=== PATIENT | male | born 2000 | race Caucasian/White ===

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

== ENCOUNTER 2019-10-08 23:27 | Inpatient (IN) | payer MEDICAID, OTHER ==
[~2019-10-08] VITALS: Ht 182.9 cm; Wt 112.0 kg
[2019-10-08 23:52] LABS: BASOPHILS % (AUTO) 0.6 % (0.0-2.0); EOSINOPHILS % (AUTO) 1.7 % (1.0-6.0); HEMATOCRIT 45.8 % (41-53); LYMPHOCYTES # (AUTO) 1.7 K/uL (1.0-4.8); LYMPHOCYTES % (AUTO) 22.3 % (22.0-44.0); MEAN CORPUSCULAR HEMOGLOBIN 27.8 pg (26.0-34.0); MEAN CORPUSCULAR HGB CONC 32.9 G/dL (31.0-37.0); MEAN CORPUSCULAR VOLUME 85 fL (80-100); MONOCYTES # (AUTO) 0.6 K/uL (0.1-1.0); MONOCYTES % (AUTO) 7.7 % (2.0-9.0); NEUTROPHILS # (AUTO) 5.2 K/uL (1.8-7.7); NEUTROPHILS % (AUTO) 67.7 % (40.0-70.0); PLATELET COUNT (AUTO) 257 K/uL (150-450); RED BLOOD CELL COUNT(AUTO) 5.41 MIL/uL (4.50-5.90); RED CELL DISTRIBUTION WIDTH 13.2 % (11.5-14.5)
[2019-10-09 00:03] LABS: ANION GAP 9 mmol/L (8-16); CALCIUM, TOTAL 9.2 mg/dL (8.8-10.5); CARBON DIOXIDE 27 mmol/L (22-29); CHLORIDE 105 mmol/L (98-107); CREATININE 0.96 mg/dL (0.60-1.30); GLOMERULAR FILTR. RATE CALC > 60 mL/min (>60); GLUCOSE,RANDOM 95 mg/dL (70-110); POTASSIUM 3.9 mmol/L (3.5-5.1); SODIUM SERUM 141 mmol/L (136-145); UREA NITROGEN, BLOOD 7 mg/dL (7-18)
[2019-10-09 00:09] LABS: ALANINE AMINOTRANSFERASE 63 U/L (12-78); ALBUMIN 4.3 g/dL (3.4-5.0); ALKALINE PHOSPHATASE 87 U/L (46-116); ASPARTATE AMINOTRANSFERASE 18 U/L (15-37); BILIRUBIN,TOTAL 0.5 mg/dL (0.1-1.0); TOTAL PROTEIN, SERUM 8.3 g/dL (6.4-8.2)
[2019-10-09 00:20] LABS: ACETAMINOPHEN < 2 mcg/mL (10-30)
[2019-10-09 00:42] LABS: SALICYLATE 0.5 mg/dL (2.8-20.0)
[2019-10-09 02:29] LABS: AMPHET/METH SCREEN,URINE NEGATIVE (NEGATIVE); BARBITURATE SCREEN, URINE NEGATIVE (NEGATIVE); BENZODIAZEPINES SCREEN,URINE NEGATIVE (NEGATIVE); CANNABINOID SCREEN,URINE NEGATIVE (NEGATIVE); COCAINE SCREEN,URINE NEGATIVE (NEGATIVE); METHADONE SCREEN, URINE NEGATIVE (NEGATIVE); OPIATE SCREEN,URINE NEGATIVE (NEGATIVE)
[2019-10-09 02:43] LABS: PHENCYCLIDINE SCREEN,URINE NEGATIVE (NEGATIVE)
[2019-10-09] MEDS ORDERED: HALOPERIDOL 5 MG TABLET PO PRN (03:00)
[2019-10-09 04:06] LABS: APPEARANCE,URINE CLEAR (CLEAR); BILIRUBIN,URINE NEGATIVE (NEGATIVE); GLUCOSE, URINE (UA) NEGATIVE (NEGATIVE); KETONES,URINE NEGATIVE (NEGATIVE); LEUKOCYTE ESTERASE ,URINE NEGATIVE (NEGATIVE); NITRATE,URINE NEGATIVE (NEGATIVE); OCCULT BLOOD,URINE NEGATIVE (NEGATIVE); PROTEIN,URINE NEGATIVE (NEGATIVE); UROBILINOGEN,URINE 0.2 mg/dL (<=1.0)
[2019-10-09] MEDS: LORazepam 2 MG TABLET PO PRN (04:59)
[2019-10-09 05:12] VITALS: BP 140/96
[2019-10-09 05:17] VITALS: BP 140/96
[2019-10-09 05:18] VITALS: BP 140/96
[2019-10-09] MEDS: ESCITALOPRAM OXALATE 10 MG TABLET PO SCH (16:07)
[2019-10-09 18:11] VITALS: BP 134/75
[2019-10-09 21:26] VITALS: BP 138/90
[2019-10-09] MEDS: ZOLPIDEM TARTRATE 10 MG TABLET PO PRN (21:26)
[2019-10-10 07:54] LABS: CHOL/HDL RATIO 3.7 (4.2-7.3)
[2019-10-10] MEDS: ESCITALOPRAM OXALATE 10 MG TABLET PO SCH (08:49)
[2019-10-10 14:00] VITALS: BP 146/88
[2019-10-10] MEDS: LORazepam 2 MG TABLET PO PRN (14:20)
[2019-10-10 17:27] VITALS: BP 129/66
[2019-10-10] MEDS: ZOLPIDEM TARTRATE 10 MG TABLET PO PRN (20:50)
[2019-10-11] MEDS: ESCITALOPRAM OXALATE 10 MG TABLET PO SCH (09:48)
[2019-10-11 10:06] VITALS: BP 153/71
[2019-10-11] MEDS ORDERED: ESCI5TAB PO (13:47)
== END 2019-10-11 15:00 | disposition home or self-care (01) | DRG 881 ==
LOC: EMS 23:27 → 3EI 10-09 02:57
PROVIDERS: ADMIT Psychiatry & Neurology Child & Adolescent Psychiatry; ATTEND Psychiatry & Neurology Child & Adolescent Psychiatry
DX: F32.9 Major depressive disorder, single episode, unspecified (principal); T39.1X2A Poisoning by 4-Aminophenol derivatives, intentional self-harm, initial encounter; G44.209 Tension-type headache, unspecified, not intractable; Y92.89 Other specified places as the place of occurrence of the external cause; Z80.9 Family history of malignant neoplasm, unspecified; Z91.018 Allergy to other foods
CPT/HCPCS: 93005; 99291; G0480; G0481